=== PATIENT | female | born 1990 | race Caucasian/White ===

== ENCOUNTER 2018-07-12 11:25 | Outpatient (CLI) | payer BC ==
[~2018-07-12] VITALS: Ht 157.5 cm; Wt 124.5 kg
[2018-07-12 11:49] VITALS: BP 131/63
[2018-07-12 11:56] LABS: BASOPHILS # (AUTO) 0.04 x10^3/uL (0-0.1); BASOPHILS % (AUTO) 0 % (0-1); EOSINOPHILS # (AUTO) 0.02 x10^3/uL (0-0.4); EOSINOPHILS % (AUTO) 0 % (1-7); LYMPHOCYTES # (AUTO) 1.46 x10^3/uL (1-3.4); LYMPHOCYTES % (AUTO) 15 % (22-44); MD NO; MEAN CORPUSCULAR HEMOGLOBIN 27.7 pg (27.0-34.8); MEAN CORPUSCULAR HGB CONC 33.9 g/dL (32.4-35.8); MEAN CORPUSCULAR VOLUME 81.8 fL (80-100); MEAN PLATELET VOLUME 8.4 fL (7.4-10.4); MONOCYTES # (AUTO) 0.65 x10^3/uL (0.2-0.8); MONOCYTES % (AUTO) 7 % (2-9); NEUTROPHILS # (AUTO) 7.37 x10^3/uL (1.8-6.8); NEUTROPHILS % (AUTO) 77 % (42-75); PLATELET COUNT 233 x10^3/uL (130-400); RED CELL DISTRIBUTION WIDTH 14.5 % (9.6-15.2)
[2018-07-12 12:02] LABS: MICROSCOPIC INDICATED
[2018-07-12 12:08] LABS: ALBUMIN 2.4 g/dL (3.4-5.0); ANION GAP 7 mmol/L (5-15); CALCIUM 8.8 mg/dL (8.5-10.1); CHLORIDE 110 mmol/L (98-107)
[2018-07-12 12:12] LABS: ALANINE AMINOTRANSFERASE 13 U/L (12-78); ALKALINE PHOSPHATASE 102 U/L (45-117); BILIRUBIN,TOTAL 0.3 mg/dL (0.2-1.0); CREATININE 0.58 mg/dL (0.55-1.02); TOTAL PROTEIN 6.4 g/dL (6.4-8.2)
[2018-07-12 12:13] LABS: BILIRUBIN, DIRECT < 0.1 mg/dL (0.1-0.2)
[2018-07-12] MEDS ORDERED: PREN1TAB60 PO (13:38)
[2018-07-12] MEDS ORDERED: INSU100V11 SQ (13:39)
== END 2018-07-12 13:52 | disposition home or self-care (01) ==
LOC: LDOP 11:25
PROVIDERS: ATTEND Obstetrics & Gynecology Gynecology
DX: O24.414 Gestational diabetes mellitus in pregnancy, insulin controlled (principal); O13.3 Gestational [pregnancy-induced] hypertension without significant proteinuria, third trimester; Z3A.38 38 weeks gestation of pregnancy
CPT/HCPCS: 36415; 59025; 80053; 81001; 82248; 82570; 84156; 84550; 85025; 99201; G0463

== ENCOUNTER 2018-07-14 09:04 | Inpatient (IN) | payer BC ==
[~2018-07-14] VITALS: Ht 157.5 cm; Wt 124.0 kg
[~2018-07-14 09:04] MED LIST: INSU100V11 SQ; PREN1TAB60 PO
[2018-07-14] MEDS ORDERED: OXYTOCIN 30U/ 0.9% NaCL 500ML 500 ML IV ONE (21:20)
[2018-07-14] MEDS ORDERED: OXYTOCIN 30U/ 0.9% NaCL 500ML 500 ML IV PRN (21:20)
[2018-07-14] MEDS ORDERED: D5%-LACTATED RINGERS 1,000 ML IV SCH (21:20)
[2018-07-14] MEDS ORDERED: NEWBORN KIT ONE (21:22)
[2018-07-14] MEDS ORDERED: OXYTOCIN 30U/ 0.9% NaCL 500ML 500 ML ONE (21:23)
[2018-07-14] MEDS ORDERED: MISOPROSTOL 25 MCG TABLET ONE (21:23)
[2018-07-14] MEDS ORDERED: MISOPROSTOL 25 MCG TABLET VG PRN (21:30)
[2018-07-14] MEDS ORDERED: ONDANSETRON 2MG/ML, 2ML IVPush PRN (21:30)
[2018-07-14] MEDS ORDERED: FENTANYL PF 100 MCG/2ML IVPush PRN (21:30)
[2018-07-14] MEDS ORDERED: FENTANYL PF 100 MCG/2ML IV PRN (21:30)
[2018-07-14] MEDS ORDERED: SODIUM CITRATE/CITRIC ACID 30 ML UDC PO PRN (21:30)
[2018-07-14] MEDS ORDERED: METOCLOPRAMIDE 5 MG/ML, 2ML IVPush PRN (21:30)
[2018-07-14 21:43] LABS: BASOPHILS # (AUTO) 0.04 x10^3/uL (0-0.1); BASOPHILS % (AUTO) 0 % (0-1); EOSINOPHILS # (AUTO) 0.02 x10^3/uL (0-0.4); EOSINOPHILS % (AUTO) 0 % (1-7); LYMPHOCYTES # (AUTO) 1.81 x10^3/uL (1-3.4); LYMPHOCYTES % (AUTO) 19 % (22-44); MD NO; MEAN CORPUSCULAR HEMOGLOBIN 27.5 pg (27.0-34.8); MEAN CORPUSCULAR HGB CONC 33.4 g/dL (32.4-35.8); MEAN CORPUSCULAR VOLUME 82.2 fL (80-100); MEAN PLATELET VOLUME 8.6 fL (7.4-10.4); MONOCYTES # (AUTO) 0.58 x10^3/uL (0.2-0.8); MONOCYTES % (AUTO) 6 % (2-9); NEUTROPHILS # (AUTO) 7.15 x10^3/uL (1.8-6.8); NEUTROPHILS % (AUTO) 75 % (42-75); PLATELET COUNT 238 x10^3/uL (130-400); RED BLOOD COUNT 4.44 x10^6/uL (3.82-5.3); RED CELL DISTRIBUTION WIDTH 14.9 % (9.6-15.2)
[2018-07-14] MEDS: LACTATED RINGERS 1,000 ML IV SCH (21:45)
[2018-07-14 22:08] VITALS: BP 141/70
[2018-07-14] MEDS ORDERED: MISOPROSTOL 200 MCG TABLET ONE (22:29)
[2018-07-15] MEDS: LACTATED RINGERS 1,000 ML IV SCH ×4 (03:38→22:13)
[2018-07-15 08:49] LABS: ALANINE AMINOTRANSFERASE 10 U/L (12-78); ALBUMIN 2.5 g/dL (3.4-5.0); ANION GAP 9 mmol/L (5-15); CALCIUM 9.4 mg/dL (8.5-10.1); CHLORIDE 109 mmol/L (98-107); CREATININE 0.59 mg/dL (0.55-1.02)
[2018-07-15 08:51] LABS: ALKALINE PHOSPHATASE 96 U/L (45-117); BILIRUBIN,TOTAL 0.2 mg/dL (0.2-1.0); TOTAL PROTEIN 6.4 g/dL (6.4-8.2)
[2018-07-15 08:52] LABS: BILIRUBIN, DIRECT < 0.1 mg/dL (0.1-0.2)
[2018-07-15] MEDS ORDERED: TERBUTALINE 1 MG/ML, 1ML ONE (10:51)
[2018-07-15] MEDS ORDERED: FENTANYL/BUPIV./NS/PF 250 ML EPIDCONT SCH ×2 (13:36→13:58)
[2018-07-15] MEDS ORDERED: EPHEDRINE 50 MG/ML, 1ML IVPush PRN (14:00)
[2018-07-15] MEDS ORDERED: LACTATED RINGERS 1,000 ML IVBOLUS PRN (14:00)
[2018-07-15] MEDS ORDERED: NALOXONE 0.4 MG/ML, 1ML IVPush PRN (14:00)
[2018-07-15] MEDS ORDERED: LACTATED RINGERS 500 ML IVBOLUS PRN (14:00)
[2018-07-15] MEDS ORDERED: FENTANYL PF 500 MCG, BUPIVACAINE/PF 0.5%, 30ML 62.5 ML in SODIUM CHLORIDE 0.9% 177.5 ML EPIDCONT SCH (14:30)
[2018-07-15 18:44] LABS: MICROSCOPIC AUTO
[2018-07-15 18:54] LABS: CREATININE,URINE RANDOM 71.7 mg/dL
[2018-07-16] MEDS ORDERED: CEFAZOLIN PMX 2GM/50ML 50 ML IVPB SCH (00:30)
[2018-07-16] MEDS ORDERED: SODIUM CITRATE/CITRIC ACID 30 ML UDC ONE (05:54)
[2018-07-16] MEDS ORDERED: METOCLOPRAMIDE 5 MG/ML, 2ML ONE (05:54)
[2018-07-16] MEDS ORDERED: CEFAZOLIN 1,000 MG ONE (05:58)
[2018-07-16] MEDS: LACTATED RINGERS 1,000 ML IV SCH ×7 (05:58→23:26)
[2018-07-16] MEDS ORDERED: ONDANSETRON 2MG/ML, 2ML ONE (05:58)
[2018-07-16] MEDS ORDERED: EPHEDRINE 50 MG/ML, 1ML ONE (05:58)
[2018-07-16] MEDS ORDERED: KETOROLAC 30 MG/1 ML ONE (05:58)
[2018-07-16] MEDS ORDERED: PROPOFOL 10 MG/ML, 20ML ONE (05:58)
[2018-07-16] MEDS ORDERED: DEXAMETHASONE 4 MG/ML, 1ML ONE (05:58)
[2018-07-16] MEDS ORDERED: OXYTOCIN 10 UNITS/ML, 1ML ONE (05:58)
[2018-07-16] MEDS ORDERED: PHENYLEPHRINE 10 MG/ML ONE (05:58)
[2018-07-16] MEDS ORDERED: FENTANYL PF 100 MCG/2ML ONE ×3 (05:58→07:29)
[2018-07-16] MEDS ORDERED: SUCCINYLCHOLINE 20 MG/ML, 10ML ONE (05:58)
[2018-07-16] MEDS ORDERED: OXYcodone 5 MG/5 ML ORAL.SOL UDC PO PRN (06:00)
[2018-07-16] MEDS ORDERED: EPHEDRINE 50 MG/ML, 1ML IVPush PRN (06:00)
[2018-07-16] MEDS ORDERED: HYDROcodone/APAP 7.5-325MG/15ML UDC PO PRN (06:00)
[2018-07-16] MEDS ORDERED: PROMETHAZINE 25 MG/ML, 1ML IV PRN (06:00)
[2018-07-16] MEDS ORDERED: HYDROmorphone 2 MG/ML, 1ML IVPush PRN (06:00)
[2018-07-16] MEDS ORDERED: hydrALAzine 20 MG/ML, 1ML IV PRN (06:00)
[2018-07-16] MEDS ORDERED: FENTANYL PF 100 MCG/2ML IV PRN (06:00)
[2018-07-16] MEDS ORDERED: MIDAZOLAM 1 MG/ML, 2ML IV PRN (06:00)
[2018-07-16] MEDS ORDERED: LABETALOL 5MG/ML, 20ML IV PRN (06:00)
[2018-07-16] MEDS ORDERED: MEPERIDINE/PF 25MG/0.5ML IVPush PRN (06:00)
[2018-07-16] MEDS ORDERED: ALBUTEROL SULFATE 2.5 MG/3 ML NPPB PRN (06:00)
[2018-07-16] MEDS ORDERED: ONDANSETRON 2MG/ML, 2ML IVPush PRN (06:00)
[2018-07-16] MEDS ORDERED: AZITHROMYCIN 1,000 MG in SODIUM CHLORIDE 0.9% 500 ML IV ONE (06:30)
[2018-07-16] MEDS ORDERED: morphine SULFATE/PF 1 MG/ML, 10ML ONE (06:46)
[2018-07-16] MEDS: OXYTOCIN 30U/ 0.9% NaCL 500ML 500 ML IV SCH ×2 (07:26→17:26)
[2018-07-16] MEDS ORDERED: OXYTOCIN 30U/ 0.9% NaCL 500ML 500 ML ONE (07:29)
[2018-07-16] MEDS ORDERED: MISOPROSTOL 200 MCG TABLET PR PRN (07:30)
[2018-07-16] MEDS ORDERED: ONDANSETRON 2MG/ML, 2ML IV PRN (07:30)
[2018-07-16] MEDS ORDERED: morphine SULFATE 10 MG/ML, 1ML IVPush PRN ×2 (07:30)
[2018-07-16] MEDS ORDERED: morphine SULFATE 10 MG/ML, 1ML ONE (08:43)
[2018-07-16 09:45] VITALS: BP 120/75
[2018-07-16] MEDS: PRENATAL VIT/IRON/FA 1 EACH TABLET PO SCH (09:45)
[2018-07-16] MEDS: OXYcodone IR 5MG TABLET PO PRN ×4 (11:29→20:08)
[2018-07-16] MEDS: KETOROLAC 30 MG/1 ML IV SCH ×2 (12:57→18:46)
[2018-07-16 13:30] VITALS: BP 125/70
[2018-07-16 15:35] LABS: MEAN CORPUSCULAR HEMOGLOBIN 26.6 pg (27.0-34.8); MEAN CORPUSCULAR HGB CONC 32.1 g/dL (32.4-35.8); MEAN CORPUSCULAR VOLUME 82.9 fL (80-100); MEAN PLATELET VOLUME 8.4 fL (7.4-10.4); PLATELET COUNT 200 x10^3/uL (130-400); RED BLOOD COUNT 4.37 x10^6/uL (3.82-5.3); RED CELL DISTRIBUTION WIDTH 14.8 % (9.6-15.2)
[2018-07-16 15:36] LABS: MD YES
[2018-07-16 15:38] LABS: <PLATELET ESTIMATE> ADEQUATE; ANISOCYTOSIS 1+; HYPOCHROMIA 1+; LARGE PLATELETS 1+; LYMPH#(MANUAL) 2.08 x10^3/uL (1-3.4); LYMPHS% (MANUAL) 12 % (22-44); MONOS#(MANUAL) 0.52 x10^3/uL (0.3-2.7); MONOS% (MANUAL) 3 % (2-9); SEG#(MANUAL) 14.71 x10^3/uL (1.8-6.8); SEGS% (MANUAL) 85 % (42-75)
[2018-07-16 17:30] VITALS: BP 113/75
[2018-07-16 20:00] VITALS: BP 111/75
[2018-07-16] MEDS ORDERED: RHOGAM FROM BLOOD BANK 1 NOTE EA IM/IV ONE (21:30)
[2018-07-16] MEDS: OXYcodone/APAP 5/325MG TABLET PO PRN (23:59)
[2018-07-17 01:00] VITALS: BP 114/73
[2018-07-17] MEDS: KETOROLAC 30 MG/1 ML IV SCH ×4 (01:10→18:41)
[2018-07-17] MEDS: OXYTOCIN 30U/ 0.9% NaCL 500ML 500 ML IV SCH ×3 (03:26→23:26)
[2018-07-17] MEDS: LACTATED RINGERS 1,000 ML IV SCH ×6 (03:26→23:26)
[2018-07-17] MEDS: OXYcodone/APAP 5/325MG TABLET PO PRN ×3 (04:23→20:45)
[2018-07-17 04:28] VITALS: BP 102/64
[2018-07-17 07:40] VITALS: BP 116/73
[2018-07-17] MEDS: SIMETHICONE 80 MG CHEW TAB PO PRN ×2 (08:31→20:45)
[2018-07-17] MEDS: DOCUSATE 100 MG CAPSULE PO PRN ×2 (08:33→20:45)
[2018-07-17] MEDS: OXYcodone IR 5MG TABLET PO PRN ×3 (08:42→20:44)
[2018-07-17] MEDS: PRENATAL VIT/IRON/FA 1 EACH TABLET PO SCH (09:00)
[2018-07-17 20:04] VITALS: BP 127/81
[2018-07-18] MEDS: KETOROLAC 30 MG/1 ML IV SCH ×2 (00:51→06:57)
[2018-07-18] MEDS: OXYcodone/APAP 5/325MG TABLET PO PRN ×2 (00:52→04:52)
[2018-07-18] MEDS: OXYcodone IR 5MG TABLET PO PRN ×6 (00:52→21:25)
[2018-07-18] MEDS ORDERED: KETOROLAC 30 MG/1 ML ONE (06:53)
[2018-07-18] MEDS: LACTATED RINGERS 1,000 ML IV SCH ×5 (07:26→23:26)
[2018-07-18 07:30] VITALS: BP 122/84
[2018-07-18] MEDS: PRENATAL VIT/IRON/FA 1 EACH TABLET PO SCH (09:00)
[2018-07-18] MEDS: DOCUSATE 100 MG CAPSULE PO PRN ×2 (09:01→19:01)
[2018-07-18] MEDS: OXYTOCIN 30U/ 0.9% NaCL 500ML 500 ML IV SCH ×2 (09:26→23:00)
[2018-07-18] MEDS: IBUPROFEN 600 MG TABLET PO PRN ×2 (13:04→19:01)
[2018-07-18 20:55] VITALS: BP 155/96
[2018-07-18 21:25] VITALS: BP 137/83
[2018-07-19] MEDS: IBUPROFEN 600 MG TABLET PO PRN (01:55)
[2018-07-19] MEDS: SIMETHICONE 80 MG CHEW TAB PO PRN (01:55)
[2018-07-19] MEDS: OXYcodone IR 5MG TABLET PO PRN ×2 (01:55→07:12)
[2018-07-19] MEDS: OXYTOCIN 30U/ 0.9% NaCL 500ML 500 ML IV SCH (05:26)
[2018-07-19] MEDS: LACTATED RINGERS 1,000 ML IV SCH ×2 (05:26→07:26)
[2018-07-19] MEDS: DOCUSATE 100 MG CAPSULE PO PRN (07:12)
[2018-07-19] MEDS: PRENATAL VIT/IRON/FA 1 EACH TABLET PO SCH (07:12)
[2018-07-19 07:30] VITALS: BP 129/84
[2018-07-19] MEDS ORDERED: IBUP-1222 PO (09:00)
[2018-07-19] MEDS ORDERED: OXYC-302 PO (09:00)
== END 2018-07-19 13:01 | disposition home or self-care (01) | DRG 788 ==
LOC: LDIP 21:06 → 2NW 07-16 09:30
PROVIDERS: ADMIT Obstetrics & Gynecology Gynecology; ATTEND Obstetrics & Gynecology Gynecology
PROC: 10D00Z1 Extraction of Products of Conception, Low, Open Approach (ICD-10-PCS; principal; 2018-07-16)
PROC: 3E0234Z Introduction of Serum, Toxoid and Vaccine into Muscle, Percutaneous Approach (ICD-10-PCS; 2018-07-16)
DX: O13.4 Gestational [pregnancy-induced] hypertension without significant proteinuria, complicating childbirth (principal); O24.424 Gestational diabetes mellitus in childbirth, insulin controlled; O42.92 Full-term premature rupture of membranes, unspecified as to length of time between rupture and onset of labor; O62.1 Secondary uterine inertia; O99.214 Obesity complicating childbirth; Z37.0 Single live birth; Z3A.39 39 weeks gestation of pregnancy; Z82.49 Family history of ischemic heart disease and other diseases of the circulatory system; Z83.3 Family history of diabetes mellitus; E66.9 Obesity, unspecified; O99.344 Other mental disorders complicating childbirth; F32.9 Major depressive disorder, single episode, unspecified; O26.893 Other specified pregnancy related conditions, third trimester; Z67.91 Unspecified blood type, Rh negative; Z23 Encounter for immunization
CPT/HCPCS: 36415; J2790; J7121; 80053; 81001; 82248; 82570; 82803; 82962; 84156; 84550; 85025; 85461; 86850; 86900; G0378; J0456; J0690; J1100; J1885; J2274; J2405; J2704; J3010; J0330; J2270; J2370; J2590; J2765; J7040; J7120